=== PATIENT | female | born 1990 | race Caucasian/White ===

== ENCOUNTER 2018-02-17 00:36 | Inpatient (IN) | payer OTHER ==
[~2018-02-17] VITALS: Ht 172.7 cm; Wt 70.3 kg
--- NOTE | ~2018-02-17 | DS ---
PATIENT:RADHA WAKEFIELD :89 MEDICAL RECORD: [id number] DISCHARGE SUMMARY ADMISSION DATE: 02/17/18 DISCHARGE DATE: 02/19/18 DATE OF ADMISSION: 02/17/2018 DATE OF DISCHARGE: 02/19/2018 ADMISSION DIAGNOSIS: at term. DISCHARGE DIAGNOSIS: Mother delivered at term. PROCEDURE: Vaginal delivery. ATTENDING: Mar Sampson MD HISTORY OF PRESENT ILLNESS: See the H&P in the chart. SUMMARY OF HOSPITALIZATION: The patient was admitted to the hospital and labored and subsequently delivered vaginally without incident. At the time of discharge, she is doing well without complaints. The patient has a slight tachycardia noted. The patient will follow up in the clinic. She has been given precautions. Discharge medications will include [id number] Tylenol and ibuprofen for pain management. She declines any control at this point. TRANSINT:[id number] Voice Confirmation ID: [id number] DOCUMENT ID: [id number] MAR SAMPSON MD at 1144 CC: [id number] DICTATION DATE: 02/19/18 0853 [employer]: 02/20/18 1005 DIS IN 02/19/18 [facility] [address] [id number]
[~2018-02-17 00:36] MED LIST: HYDROCODON-ACE1 EAC7 PO; IBUPROFEN600 MG PO; PRENAVITE1 TAB PO
[2018-02-17 01:00] VITALS: BP 124/82; Ht 172.7 cm; Wt 70.3 kg
[2018-02-17 01:50] LABS: HEMATOCRIT 37.2 % (36.0-48.0); HEMOGLOBIN 12.6 g/dL (12-16); MCH 30.5 pg (26.0-34.0); MCHC 33.9 g/dL (31.0-37.0); MCV 90.1 fL (80.0-100.0); MEAN PLATELET VOLUME 10.2 fL (7.4-10.4); RBC 4.13 10x6/uL (4.00-5.40); RDW 13.5 % (11.5-14.5); WBC 8.6 10x3/uL (4.8-10.8)
[2018-02-17 02:15] LABS: APPEARANCE CLEAR (CLEAR); BILIRUBIN NEGATIVE (NEGATIVE); COLOR STRAW (YELLOW); GLUCOSE NEGATIVE (NEGATIVE); KETONE NEGATIVE (NEGATIVE); NITRITE NEGATIVE (NEGATIVE); PROTEIN NEGATIVE (NEGATIVE); SPECIFIC GRAVITY 1.005 (1.005-1.020); UROBILINOGEN NORMAL (NORMAL)
[2018-02-17 22:30] VITALS: BP 103/64
[2018-02-18 06:14] LABS: RAPID PLASMA REAGIN Non Reactive (Non Reactive)
[2018-02-18 11:00] VITALS: BP 106/646
[2018-02-18 15:25] VITALS: BP 111/63
[2018-02-18 19:00] VITALS: BP 100/56
[2018-02-19 07:30] VITALS: BP 95/74
[2018-02-19 12:42] VITALS: BP 107/51
== END 2018-02-19 13:45 | disposition home or self-care (01) | DRG 774 ==
LOC: D.LDO 00:36 → D.LD 00:45
PROVIDERS: Obstetrics & Gynecology
PROC: 10E0XZZ Delivery of Products of Conception, External Approach (ICD-10-PCS; principal; 2018-02-17)
DX: O99.824 Streptococcus B carrier state complicating childbirth (principal); O90.89 Other complications of the puerperium, not elsewhere classified; Z3A.39 39 weeks gestation of pregnancy; Z37.0 Single live birth; R00.0 Tachycardia, unspecified